=== PATIENT | female | born 1985 | race African-American/Black ===

== ENCOUNTER 2024-01-24 11:30 | Outpatient (CLI) | payer OTHER, SELFPAY ==
[2024-01-24 12:07] LABS: Hematocrit 34.3 % (37.0-47.0); Hemoglobin 10.6 g/dL (12.0-15.0); Mean Corpuscular HGB Conc 30.9 g/dl (32-36); Mean Corpuscular Hemoglobin 22.8 pg (26-34); Mean Corpuscular Volume 73.8 fl (80-100); Mean Platelet Volume 10.1 fl (7.4-10.4); Platelet Count Result 344 k/mm3 (150-375); Red Blood Count 4.65 M/mm3 (4.2-5.4); Red Cell Distribution Width 17.1 % (11.5-14.5)
[2024-01-24 12:19] LABS: Alanine Aminotransferase 14 U/L (6-35); Albumin Level 4.2 g/dL (3.5-5.1); Alkaline Phosphatase 49 U/L (38-126); Anion Gap 10 mmol/L (4-12); Aspartate Amino Transferase 17 U/L (14-36); Bilirubin,Total 0.4 mg/dL (0.2-1.3); Blood Urea Nitrogen 12 mg/dL (7-17); Calcium 9.3 mg/dL (8.4-10.2); Carbon Dioxide 25 mmol/L (22-30); Chloride 103 mmol/L (98-107); Estimated Glomerular Filt Rate > 60; Glucose 87 mg/dL (65-110); Sodium 138 mmol/L (137-145)
[2024-01-24 12:51] LABS: Hemoglobin A1C 6.1 % (<5.7)
[2024-01-24 13:00] LABS: Free T4 Free Thyroxine 1.16 ng/mL (0.78-2.19)
[2024-01-26 05:58] LABS: DHEA-Sulfate 124 mcg/dL (19-237); FSH 1.4 mIU/mL; LH 1.4 mIU/mL; Progesterone 4.7 ng/mL; Prolactin 10.3 ng/mL
[2024-01-31 12:23] LABS: Testosterone Free 5.5 pg/mL (0.1-6.4); Testosterone Total 35 ng/dL (2-45)
== END 2024-01-24 11:31 | disposition home or self-care (01) ==
LOC: ANHLAB 11:39
PROVIDERS: Visit Provider Obstetrics & Gynecology
DX: N92.0 Excessive and frequent menstruation with regular cycle (principal); L68.0 Hirsutism
CPT/HCPCS: 36415; 80053; 82627; 82670; 83001; 83002; 83036; 84144; 84146; 84402; 84403; 84439; 84443; 85027

== ENCOUNTER 2024-02-07 09:27 | Outpatient (CLI) | payer OTHER, SELFPAY ==
--- NOTE | ~2024-02-07 | US_ITS ---
US pelvic complete w TV Ordering provider: Josias Unger MD History: . excessive frequent menstruation w regular cycle . Comparison: None. Technique: Transabdominal and endovaginal ultrasound of the pelvis (Doppler ultrasound interrogation techniques used as needed for this exam.) FINDINGS: CERVIX: Normal. UTERUS: Measures 11x 6.4x 5.5 cm in length which is within normal limits and is anteverted. Multiple fibroids are seen with the largest measuring 5.2 x 4.7 x 3.6 cm. Another one is seen measuring 2.5 x 3 x 4.3 cm. ENDOMETRIUM: Normal in thickness measuring 3 mm. (Note: the premenopausal endometrium may measure up to 16 mm when in the secretory phase.) No endometrial masses, cysts or fluid. CUL DE SAC: Minimal posterior free fluid. RIGHT OVARY: Normal in size measuring 4.4x 1.9x 2.2 cm. Normal echotexture. Doppler vascular flow pre sent. LEFT OVARY: Not seen. ADNEXA: Normal. No mass. IMPRESSION: Multiple fibroids. Minimal fluid in the posterior cul-de-sac. Reviewed, dictated and finalized at location A. JSF DEVELOPER
== END 2024-02-07 09:28 | disposition home or self-care (01) ==
PROVIDERS: PCP Obstetrics & Gynecology; Visit Provider Obstetrics & Gynecology
DX: D25.9 Leiomyoma of uterus, unspecified (principal)
CPT/HCPCS: 76830; 76856

== ENCOUNTER 2024-10-03 11:50 | Outpatient (CLI) | payer OTHER, SELFPAY ==
--- OUTSIDE RECORDS SUMMARY | 2024-10-03 11:55 | XMS_ITS | Clinical Summary ---
Author Organization [facility] al Address [address] [place] [address] Care Team Providers Care Rail Transit Operator Name Role Phone Brittany Ellison NP Primary Care Provider + Allergies Active Allergy Reactions Criticality Noted Date Comments Metronidazole Headache Low 01/19/2018 Nickel Rash Medium 04/03/2024 Penicillin Unknown 02/14/2024 Tree Nut Medications cetirizine 10 mg capsule Take 10 mg by mouth daily 30 capsule 07/18/19 20 Active acetaminophen 325 mg capsule Take 1 capsule (325 mg total) by mouth every 4 (four) hours as needed Active EPINEPHrine (EpiPen 2-Ramirez) 0.3 mg/0.3 mL auto-injection syringeIndications:Carmen phylaxis Inject 0.3 mL (0.3 mg total) into the muscle as instructed as needed for anaphylaxis 2 each 07/01/19 23 Active azelastine (ASTELIN) 137 mcg (0.1 %) nasal sprayIndications:Aller gic rhinoconjunctivitis Administer 1 spray into each nostril 2 (two) times a day Use in each nostril as directed 30 mL 07/01/19 23 Active fluticasone propionate (FLONASE) 50 mcg/actuation nasal sprayIndications:Aller gic rhinoconjunctivitis Administer 2 sprays into each nostril daily 18.2 mL 07/01/19 23 Active ferrous sulfate 325 mg (65 mg of elemental iron) tabletIndications:Iron Deficiency Anemia Take 1 tablet (65 mg of elemental iron total) by mouth 3 (three) times a day with meals Active Active Problems Problem Noted Date Diagnosed Date Abnormal uterine bleeding (AUB) 04/15/2024 Allergic rhinoconjunctivitis 07/20/2018 Tree nut allergy 07/20/2018 Paresthesias 11/28/2017 Migraine with aura and without status migrainosu s 11/13/2017 History of colonoscopy 06/20/2016 Cephalalgia 06/20/2016 Snoring 06/20/2016 Fatigue 06/20/2016 Neck swelling 06/20/2016 Surgical History Surgery Date Site/Laterality Comments [place] CHOLECYSTECTOMY Cholecystectomy - (Added by TW Conv) ANTERIOR CRUCIATE LIGAMENT REPAIR Medical History Medical History Date Comments Personal history of healed t raumatic fracture History of fracture of foot - (Added by TW Conv) Personal history of other co mplications of , childbirth and the puerperium H/O: 1 miscarriage - (Added by TW Conv) Family History Medical History Relation Name Comments Heart disease Brother Family history of cardiac disorder - (Added by TW Conv) Diabetes Father Family history of diabetes mellitus - (Added by TW Conv) Hypertension Mother Family history of hypertension - (Added by TW Conv) Lupus Mother Cancer Other Family history of malignant neoplasm - (Added by TW Conv) Relation Name Status Comments Brother Father Mother Other Social History Tobacco Use Types Packs/Day Years Used Date Smoking Tobacco: Never Smokeless Tobacco: Never Tobacco Cessation:Counseling Given: No AUDIT-C Answer Date Recorded Q1: How often do you have a drink containing alc ohol? 2-3 times a week 04/15/2024 Q2: How many drinks containi ng alcohol do you have on a typical day when you are drinking? 1 or 2 04/15/2024 Q3: How often do you have si x or more drinks on one occasion? Never 04/15/2024 Personal Safety Answer Date Recorded Have you ever been in or are you currently in a harmful physical or emotional relationship or is someone making you feel afraid or unsafe? Denies 04/15/2024 Comments Unknown Sex and Gender Information Value Date Recorded Sex Assigned at Not on file Legal Sex Female 7:27 PM TUBULAR PRODUCTS FABRICATOR Gender Identity Not on file Sexual Orientation Not on file Obstetrics History Last Filed Vital Signs Vital Sign Reading Time Taken Comments Blood Pressure 150/87 04/15/2024 9:00 AM TUBULAR PRODUCTS FABRICATOR Pulse 62 04/15/2024 9:00 AM TUBULAR PRODUCTS FABRICATOR Temperature 37.1 C (98.8 F) 04/15/2024 8:30 AM TUBULAR PRODUCTS FABRICATOR Respiratory Rate 16 04/15/2024 9:00 AM TUBULAR PRODUCTS FABRICATOR Oxygen Saturation 98% 04/15/2024 9:00 AM TUBULAR PRODUCTS FABRICATOR Inhaled Oxygen Concentration - - Weight 132 kg (291 lb) 04/15/2024 5:55 AM TUBULAR PRODUCTS FABRICATOR Height 170.2 cm (5' 7) 04/15/2024 5:55 AM TUBULAR PRODUCTS FABRICATOR Body Mass Index 45.58 04/15/2024 5:55 AM TUBULAR PRODUCTS FABRICATOR Plan of Treatment Health Maintenance Due Date Last Done Comments Cervical Cancer Screening 1985 Depression Screening 1985 Hepatitis C Screening 1985 Varicella Vaccines (1 of 2 - 13+ 2-dose series) 1998 Hepatitis B Screening 2003 Regular Well Visit/Exam 18-64 2003 DTaP/Tdap/Td Vaccine (2 - Td or Tdap) 03/27/2020 03/27/2010 Covid-19 Vaccine (3 - 2023-2 5 season) 2023 03/01/2021, 12/12/2020 Influenza Vaccine (#1) 2024 HPV Vaccines Aged Out No longer eligi ble based on patient's age to complete this topic Pneumococcal vaccine <65 Aged Out No longer eligible based on patient's age to complete this topic Insurance * Guarantor: Chen Gonzalez Account Type Relation to Patient Date of Phone Billing Address Personal/Family Self 1985 [id number] (Work) [address] [place] [address] [place] [address] [facility] CHOICE PLUS [phone] [id number] (Work) [address] [facility] [address] [place] [place] [address] [facility] [address] [facility] [address] [id number] (Work) [address] [facility] [place] [address] Care Teams Rail Transit Operator Relationship Specialty Start Date End Date Brittany Ellison NP [address] [place] [address] PCP - General Nurse Practitioner 04/10/24
--- OUTSIDE RECORDS SUMMARY | 2024-10-03 11:55 | XMS_ITS | Clinical Summary ---
Author Organization [facility] Address [address] [place] [address] Phone Care Team Providers Care Laminating Machine Operator Name Role Phone Brittany Ellison Primary Care Provider Allergies Active Allergy Reactions Criticality Noted Date Comments Metronidazole Headache Low 01/19/2018 Penicillin Rash Low 03/03/2016 Tree Nut Other (See Comments) 02/06/2020 Unclassified Drug Rash Medium 07/03/2017 Medications CETIRIZINE HCL (ZYRTEC ORAL) Take by mouth. Active Norethindrn A-E estradiol-Iron (MICROGESTIN FE 1.5/30, 28,) 1.5-30 mg-mcg tabletIndication s:Contraception Take 1 Tab by mouth daily. 3 Package 4 08/15/2013 Active Active Problems Problem Noted Date Diagnosed Date BMI 40.0-44.9, adult 02/06/2020 Morbid (severe) obesity due to excess calories 1 04/07/2019 Rash 02/06/2020 Allergic rhinoconjunctivitis 07/20/2018 Tree nut allergy 07/20/2018 Paresthesias 11/28/2017 Migraine with aura and without status migrainosu s 11/13/2017 Cephalalgia 06/20/2016 Fatigue 06/20/2016 History of colonoscopy 06/20/2016 Neck swelling 06/20/2016 Family History Medical History Relation Name Comments Depression Brother Diabetes Father Hypertension Father Other Father high cholestero l Cancer Maternal Grandmother lung Hypertension Mother Other Mother ovarian cyst Stroke Mother Diabetes Paternal Grandmother Other Paternal Grandmother high ch olesterol;osteoporosis Relation Name Status Comments Brother Father Maternal Grandmother Mother Paternal Grandmother Social History Tobacco Use Types Packs/Day Years Used Date Smoking Tobacco: Never Smokeless Tobacco: Never Alcohol Use Standard Drinks/Week Comments Yes 0 (1 standard drink = 0.6 oz pur e alcohol) Comments No Sex and Gender Information Value Date Recorded Sex Assigned at Not on file Legal Sex Female 4:07 PM CDT Gender Identity Not on file Sexual Orientation Not on file Occupation Industry Job Start Date Job End Date Not on file Not on file Not on file Not on file Last Filed Vital Signs Vital Sign Reading Time Taken Comments Blood Pressure 126/87 10/05/2020 5:12 PM CDT Pulse 92 10/05/2020 5:12 PM CDT Temperature 36.7 C (98 F) 10/05/2020 5:12 PM CDT Respiratory Rate 18 2020 7:35 PM HUMANITIES TEACHER Oxygen Saturation 100% 10/05/2020 5:12 PM CDT Inhaled Oxygen Concentration - - Weight 136.1 kg (300 lb) 10/05/2020 5:12 PM CDT Height 170.2 cm (5' 7) 10/05/2020 5:12 PM CDT Body Mass Index 46.99 10/05/2020 5:12 PM CDT Plan of Treatment Health Maintenance Due Date Last Done Comments Pre-Diabetes and Diabetes Screening 1985 DTAP/TDAP/TD VACCINES (1 - Tdap) 2004 HEPATITIS B VACCINES (1 of 3 - 19+ 3-dose series) 2004 PAP SMEAR 08/15/2016 08/15/2013 CERVICAL CANCER SCREENING 08/15/2018 HPV/Cotest (21-29) 08/15/2018 08/15/2013 HPV/Cotest (30-65) 08/15/2018 08/15/2013 INFLUENZA VACCINE (#1) 2024 HPV VACCINES Aged Out No longer eligi ble based on patient's age to complete this topic Procedures Procedure Name Priority Date/Time Associated Diagnosis Comments CERV/VAG CYTOPATH, THIN PREP IMAGR RFLX HPV Routine 08/15/2013 7:11 PM CDT Cervical cancer screening from Last 3 Months or Most Recently Relevant to Health Maintenance Results * CERV/VAG CYTOPATH, THIN PREP IMAGR RFLX HPV (08/15/2013 7:11 PM CDT) PAP INTERP Negative for intraepithelial lesion or malignancy. [facility] Comment: Performed by [facility], [address] [place] [address] Hvac Sheet Metal Installer Pap Comment This Pap test has been evaluated with computer assisted technology. [facility] ip.access [facility] ADEQUACY: Satisfactory for evaluation. Endocervical/trans formation zone component present. Age and/or menstrual status not provided [facility] CLINICAL INFORMATION Information not provided [facility] SOURCE Endocervix [facility] SERVICES [facility] PREV PAP: INFORMATION NOT PROVIDED [facility] CYTOTECHNOLOGI ST: ARSEN, CT(ASCP) [facility] LAST MENSTRUAL PERIOD INFORMATION NOT PROVIDED [facility] PREV BX: INFORMATION NOT PROVIDED [facility] Endocervical 08/15/2013 7:11 PM CDT 08/15/2013 8:36 PM CDT Comment:ENDOCERVICAL Narrative [facility] - 08/23/2013 9:55 AM CDT ecc Rebeca Carr MD PATHOLOGY/CYTOLOGY ORDERABLES Fi nal Result [facility] ip.access [facility] CLIA# [id number] [address] [place] [address] from Last 3 Months or Most Recently Relevant to Health Maintenance Insurance [facility] BLUE ACCESS CHOICE [facility] Care Teams Laminating Machine Operator Relationship Specialty Start Date End Date Brittany Ellison FNP PCP - General Nurse Practitioner Family 02/06/20
--- OUTSIDE RECORDS SUMMARY | 2024-10-03 11:55 | XMS_ITS | Clinical Summary ---
Author Organization [facility] Address [address] [place] [address] Care Team Providers Care Drag Out Worker Name Role Phone Brittany Ellison GARCIA-EDUCATION DEPARTMENT CHAIR Primary Care Provider Source Comments [facility],non-owned Affiliates and Associated Physician Practices is amultiple site organization consisting of ambulatory clinics and hospital sitesin [place], [place], [place] and [place]. This disclosure is being madepursuant to the Care Everywhere program and may not contain all information available regarding this patient. Last updated 17.[facility] Allergies Active Allergy Reactions Criticality Noted Date Comments Metronidazole Headache Low 01/19/2018 Penicillin G Rash Medium 03/03/2016 Kdc:Red Dye+Penicillin V+Saccharin+Aspartame Rash Medium 07/03/2017 Tree Nuts Unknown Medications * Be aware that medications may not be up to date on this document. Alwaysverify current medications with the patient. fluticasone propionate (FLONASE) 50 MCG/ACT nasal spray [place] 2 (two) sprays into each nostril 1 spray each nostril daily 0 6 Active cetirizine (ZYRTEC ALLERGY) 10 MG gel capsule Take 1 (one) capsule by mouth once daily Active EPINEPHrine (EPIPEN) 0.3 MG/0.3ML auto-injector pen Inject 0.3 mg into muscle once Active azelastine (ASTELIN) 0.1 % nasal spray [place] 1 (one) spray into the nose 2 times daily 0 Active acetaminophen (TYLENOL) 250 MG TABS Take by mouth every 4 hours as needed Active omeprazole (PRILOSEC) 40 MG capsule 1 Active metFORMIN (Glucophage) 500 MG tablet Take 2 (two) tablets by mouth 2 times daily with morning and evening meal 60 tablet 3 Active Additional Information Patient not taking.Reported on 07/04/2022 PreviDent 5000 Booster Plus 1.1 % USE PEA SIZED AMOUNT AFTER BREAKFAST AND BEFORE BEDTIME 3 Active ofloxacin (Ocuflox) 0.3 % ophthalmic solution INSTILL 1 DROP IN BOTH EYES FOUR TIMES DAILY FOR 7 DAYS 3 Active estradiol (Estrace) 0.1 MG/GM vaginal creamIndication s:Vulvovaginal Atrophy Insert 0.5 g into the vagina at bedtime Reasons: Vulvovaginal Atrophy 42.5 g 3 Active Active Problems Problem Noted Date Diagnosed Date Dyspareunia, female 07/15/2022 Cervical high risk HPV (human papillomavirus) te st positive 07/15/2022 BMI 40.0-44.9, adult 02/06/2020 Morbid (severe) obesity due to excess calories 1 04/07/2019 Resolved Problems Problem Noted Date Diagnosed Date Resolved Date Rash 02/06/2020 09/23/2021 Family History Medical History Relation Name Comments Bipolar Disorder Brother Depression Brother Diabetes Father Hypercholesterolemia Father Hypertension Father Cancer Maternal Grandmother Lung Hypertension Mother Other Mother Ovarian cyst Stroke Mother Diabetes Paternal Grandmother Hypercholesterolemia Paternal Grandmother Osteoporosis Paternal Grandmother Relation Name Status Comments Brother Alive Father Alive Maternal Grandmother Mother Alive Paternal Grandmother Sister Alive Social History Tobacco Use Types Packs/Day Years Used Date Smoking Tobacco: Never Smokeless Tobacco: Never Tobacco Cessation:Counseling Given: Not Answered Alcohol Use Standard Drinks/Week Comments Yes 4.2 (1 standard drink = 0.6 oz p ure alcohol) social AUDIT-C Answer Date Recorded Q1: How often do you have a drink containing alc ohol? 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 Not on file Not on file Last Filed Vital Signs Vital Sign Reading Time Taken Comments Blood Pressure 128/86 07/15/2022 1:30 PM CDT Pulse 104 01/01/2022 10:44 AM CDT Temperature 36.2 C (97.1 F) 01/01/2022 10:44 AM CDT Respiratory Rate 18 07/15/2022 1:30 PM CDT Oxygen Saturation 100% 01/01/2022 10:44 AM CDT Inhaled Oxygen Concentration - - Weight 132.9 kg (293 lb) 12/08/2022 5:00 PM CDT Height 170.2 cm (5' 7) 12/08/2022 5:00 PM CDT Body Mass Index 45.89 12/08/2022 5:00 PM CDT Plan of Treatment Health Maintenance Due Date Last Done Comments HIV SCREENING 2000 HEPATITIS C SCREENING 04/13/2003 DTAP/TDAP/TD VACCINES (1 - Tdap) 2004 HEPATITIS B VACCINE (1 of 3 - 19+ 3-dose series) 2004 HPV VACCINE (1 - 3-dose SCDM series) 2012 COVID-19 VACCINE (3 - season) 2023 03/01/2021, 12/12/2020 DEPRESSION SCREENING 03/27/2024 08/26/2021 INFLUENZA VACCINE (#1) 2024 PAP with HPV 05/24/2027 05/24/2022, 04/28, 12/13/2018, Additional history exists ZOSTER VACCINE (1 of 2) 2035 HIB VACCINE Aged Out No longer eligi ble based on patient's age to complete this topic MENINGOCOCCAL (Group B) VACCINE SHARED DECISION-MAKING Aged Out No longer eligible based on patient's age to complete this topic MENINGOCOCCAL GROUPS A/C/Y/W VACCINE Aged Out No longer eligible based on patient's age to complete this topic PNEUMOCOCCAL VACCINE Aged Out No long er eligible based on patient's age to complete this topic Goals Goal Patient Goal Type Associated Problems Recent Progress Patient-Stated? Author Medication Management General No Lanre White, CHAD Note: Expected end date: ongoing Interventions: Take all medications as prescribed Let your doctor know right away about any changes in your medications Make sure to request a refill of your medication at least one week prior to your last dose Procedures Procedure Name Priority Date/Time Associated Diagnosis Comments PAP IG LB+CT+NG+TV+HPV APTIMA RFLX 16,18/45 Routine 05/24/2022 4:48 PM POLICE DETECTIVE Well woman exam Screening for HPV (human papillomavirus) from Last 3 Months or Most Recently Relevant to Health Maintenance Results * (ABNORMAL) PAP IG LB+CT+NG+TV+HPV APTIMA RFLX 16,18/45 (05/24/2022 4:48 PM POLICE DETECTIVE) Diagnosis [facility] ACCOUNT BILL Comment:NEGATIVE FOR INTRAEP ITHELIAL LESION OR MALIGNANCY. Specimen Adequacy [facility] ACCOUNT BILL Comment:Satisfactory for fransico luation. No endocervical component is identified. Clinician Provided ICD10 [facility] ACCOUNT BILL Comment: Z01.419 Z11.51 D21.9 R10.31 G89.29 Z31.69 Performed by [facility] ACCOUNT BILL Comment:Lonny Aaron, [facility] otechnologist (ASCP) Comment . [facility] ACCOUNT BILL Note [facility] ACCOUNT BILL Comment: The Pap smear is a screening test designed to aid in the detection of premalignant and malignant conditions of the uterine cervix. It is not a diagnostic procedure and should not be used as the sole means of detecting cervical cancer. Both false-positive and false-negative reports do occur. . IGLBP CPT Code Automation [facility] ACCOUNT BILL Comment: This liquid based ThinPrep(R) pap test was screened with the use of an image guided system. Human papillomavirus Aptima Positive(A) Negative [facility] ACCOUNT BILL Comment: This nucleic acid amplification test detects fourteen high-risk HPV types (16,18,31,33,35,39,45,51,52,56,58,59,66,68) without differentiation. HPV Genotype Reflexed [facility] ACCOUNT BILL Comment:Criteria met, see HP V Genotype results. Chlamydia trachomatis RON Negative Negative [facility] ACCOUNT BILL GC RON Negative Negative [facility] ACCOUNT BILL Trichomonas vaginalis by RON Negative Negative [facility] ACCOUNT BILL PART OF UTERINE CERVIX / Unknown 05/24/2022 4:48 PM POLICE DETECTIVE 05/25/2022 Narrative [facility] ACCOUNT BILL - 05/31/2022 11:07 PM POLICE DETECTIVE No. of containers..01 ThinPrep Vial Resulting Agency Comment Lab Testing performed at: [facility] [id number] Lisa Hui DO LAB - PATHOLOGY/CYTOLOGY ORDERAB LES Final Result [facility] ACCOUNT BILL [address] [place] [address] from Last 3 Months or Most Recently Relevant to Health Maintenance Insurance [facility] Care Teams Drag Out Worker Relationship Specialty Start Date End Date Brittany Ellison APRN-ZIGGY [address] [place] [id number] PCP - General 11/09/20
--- OUTSIDE RECORDS SUMMARY | 2024-10-03 11:55 | XMS_ITS | Referral Summary ---
Author Organization [facility] Address [address] [place] [address] Care Team Providers Care Rug Weaver Name Role Phone Brittany Ellison NP Primary [...] Snoring 06/20/2016 Fatigue 06/20/2016 Neck swelling 06/20/2016 Social History Tobacco Use Types Packs/Day Years [...] on file Legal Sex Female 7:27 PM PACKAGE SORTER Gender Identity Not on file Sexual Orientation Not on file Last Filed Vital Signs Vital Sign Reading Time Taken Comments Blood Pressure 150/87 04/15/2024 9:00 AM PACKAGE SORTER Pulse 62 04/15/2024 9:00 AM PACKAGE SORTER Temperature 37.1 C (98.8 F) 04/15/2024 8:30 AM PACKAGE SORTER Respiratory Rate 16 04/15/2024 9:00 AM PACKAGE SORTER Oxygen Saturation 98% 04/15/2024 9:00 AM PACKAGE SORTER Inhaled Oxygen Concentration - - Weight 132 kg (291 lb) 04/15/2024 5:55 AM PACKAGE SORTER Height 170.2 cm (5' 7) 04/15/2024 5:55 AM PACKAGE SORTER Body Mass Index 45.58 04/15/2024 5:55 AM PACKAGE SORTER Plan of Treatment Not on file Insurance * Guarantor: Chen Gonzalez Account Type Relation to Patient Date of Phone Billing Address Personal/Family Self 1985 [id number] (Work) [address] [place] [address] [address] [facility] [place] [address] [facility] CHOICE PLUS [phone] [id number] (Work) [address] [place] [address] [address] [facility] [place] [address] [facility] [address] [facility] [id number] (Work) [id number] [facility] [place] [address] Care Teams Rug Weaver Relationship Specialty Start Date End Date Brittany Ellison NP [address] [place] [address] PCP - General Nurse Practitioner 04/10/24
[2024-10-03 15:33] LABS: Beta HCG Quantitative 175.97 mIU/ML
== END 2024-10-03 11:51 | disposition home or self-care (01) ==
LOC: ANHLAB 11:54
PROVIDERS: PCP Obstetrics & Gynecology; Visit Provider Obstetrics & Gynecology
DX: N91.1 Secondary amenorrhea (principal)
CPT/HCPCS: 36415; 84702

== ENCOUNTER 2024-10-07 16:58 | Outpatient (CLI) | payer OTHER, SELFPAY ==
--- OUTSIDE RECORDS SUMMARY | 2024-10-07 17:03 | XMS_ITS | Clinical Summary ---
Author Organization [facility] Address [address] [place] [address] Phone Care Team Providers Care Artist Color Separation Name Role Phone Brittany Ellison Primary Care [...] CDT Respiratory Rate 18 2020 7:35 PM EMERGENCY VEHICLE DRIVER Oxygen Saturation 100% 10/05/2020 5:12 PM CDT [...] INTERP Negative for intraepithelial lesion or malignancy. [facility] Comment: Performed by [facility], [address] [place] [address] Residential Treatment Staff Pap Comment This Pap test has been evaluated with computer assisted technology. [facility] yuback [facility] ADEQUACY: Satisfactory for evaluation. Endocervical/trans formation zone component present. Age and/or menstrual status not provided [facility] CLINICAL INFORMATION Information not provided [facility] SOURCE Endocervix [facility] SERVICES [facility] PREV PAP: INFORMATION NOT PROVIDED [facility] CYTOTECHNOLOGI ST: ARSEN, CT(ASCP) [facility] SERVICES [facility] LAST MENSTRUAL PERIOD INFORMATION NOT PROVIDED [facility] PREV BX: INFORMATION NOT PROVIDED [facility] Endocervical 08/15/2013 7:11 PM CDT 08/15/2013 8:36 PM CDT Comment:ENDOCERVICAL Narrative [facility] - 08/23/2013 9:55 AM CDT ecc Rebeca Carr MD PATHOLOGY/CYTOLOGY ORDERABLES Fi nal Result [facility] yuback [facility] CLIA# [id number] [address] [place] [address] from Last 3 Months or Most Recently Relevant to Health Maintenance Insurance [facility] BLUE ACCESS CHOICE [facility] Care Teams Artist Color Separation Relationship Specialty Start Date End Date Brittany Ellison FNP PCP - General Nurse Practitioner Family 02/06/20
--- OUTSIDE RECORDS SUMMARY | 2024-10-07 17:03 | XMS_ITS | Clinical Summary ---
Author Organization [facility] Address [address] [place] [address] Care Team Providers Care Spool Worker Name Role Phone Brittany Ellison NP Primary [...] 06/20/2016 Surgical History Surgery Date Site/Laterality Comments [place] CHOLECYSTECTOMY Cholecystectomy - (Added by TW Conv) [...] on file Legal Sex Female 7:27 PM CORE RESCUER Gender Identity Not on file Sexual Orientation Not on file Obstetrics History Last Filed Vital Signs Vital Sign Reading Time Taken Comments Blood Pressure 150/87 04/15/2024 9:00 AM CORE RESCUER Pulse 62 04/15/2024 9:00 AM CORE RESCUER Temperature 37.1 C (98.8 F) 04/15/2024 8:30 AM CORE RESCUER Respiratory Rate 16 04/15/2024 9:00 AM CORE RESCUER Oxygen Saturation 98% 04/15/2024 9:00 AM CORE RESCUER Inhaled Oxygen Concentration - - Weight 132 kg (291 lb) 04/15/2024 5:55 AM CORE RESCUER Height 170.2 cm (5' 7) 04/15/2024 5:55 AM CORE RESCUER Body Mass Index 45.58 04/15/2024 5:55 AM CORE RESCUER Plan of Treatment Health Maintenance Due Date [...] of Phone Billing Address Personal/Family Self 1985 [phone] (Work) [address] [place] [address] [place] [address] [facility] [phone] (Work) [address] [place] [address] [facility] [id number] [facility] [id number] (Work) [phone] [place] [address] Care Teams Spool Worker Relationship Specialty Start Date End Date Brittany Ellison NP [address] [place] [address] PCP - General Nurse Practitioner 04/10/24
--- OUTSIDE RECORDS SUMMARY | 2024-10-07 17:03 | XMS_ITS | Clinical Summary ---
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 Role Phone Unavailable Primary Care Provider Unavailabl e Social History Tobacco Use Types Packs/Day Years Used Date Smoking Tobacco: Never Assessed Comments Unknown Sex and Gender Information Value Date Recorded Sex Assigned at Not on file Legal Sex Female 4:06 PM CDT Gender Identity Not on file Sexual Orientation Not on file Plan of Treatment Health Maintenance Due Date Last Done Comments Cervical Cancer Screening Pa p Smear (Age 30 to 64) Every 3 Years 1985 Annual Physical 1988 Hepatitis C 2003 DTaP, Tdap and Td Vaccines ( 1 - Tdap) 2004 Hepatitis B Vaccines (1 of 3 - 19+ 3-dose series) 2004 Cervical Cancer Screening Pa p with HPV Testing (Age 30 to 64) Every 5 Years 2015 Cervical Cancer Screening with HPV 2015 COVID-19 Vaccine (2023-2 5 season) 2023 HPV Vaccines Aged Out No longer eligi ble based on patient's age to complete this topic Meningococcal B Vaccine Aged Out No l onger eligible based on patient's age to complete this topic Meningococcal Vaccine Aged Out No nicky skip eligible based on patient's age to complete this topic Pneumococcal Vaccine: Pediat rics (0 to 5 Years) and At-Risk Patients (6 to 49 Years) Aged Out No longer eligible b ased on patient's age to complete this topic RSV Immunizations Under 20 Months Aged Out No longer eligible based on patient's age to complete this topic
--- OUTSIDE RECORDS SUMMARY | 2024-10-07 17:03 | XMS_ITS | Clinical Summary ---
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 This disclosure is being madepursuant to the Care Everywhere program and may not contain all information available regarding this patient. Last updated 17.[facility] [employer] Allergies Active Allergy Reactions Criticality Noted Date Comments Metronidazole Headache Low 01/19/2018 Penicillin G Rash Medium 03/03/2016 Kdc:Red Dye+Penicillin V+Saccharin+Aspartame Rash Medium 07/03/2017 Tree Nuts Unknown Medications * Be aware that medications may not be up to date on this document. Alwaysverify current medications with the patient. 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 Specimen Adequacy [facility] ACCOUNT BILL Comment:Satisfactory for fransico luation. No endocervical component is identified. Clinician Provided ICD10 [facility] ACCOUNT BILL Comment: Z01.419 Z11.51 D21.9 R10.31 G89.29 Z31.69 Performed by [facility] ACCOUNT BILL Comment:Lonny Aaron, [facility] otechnologist (ASCP) Comment . [facility] ACCOUNT [...] UTERINE CERVIX / Unknown 05/24/2022 4:48 PM TATTOO ARTIST 05/25/2022 Narrative [facility] ACCOUNT BILL - 05/31/2022 11:07 PM TATTOO ARTIST No. of containers..01 ThinPrep Vial Resulting Agency Comment Lab Testing performed at: [facility] [id number] Lisa Hui DO LAB - PATHOLOGY/CYTOLOGY ORDERAB LES Final Result [facility] ACCOUNT BILL [address] [place] [address] from Last 3 Months or Most Recently Relevant to Health Maintenance Insurance [facility] Care Teams Port Traffic Manager Relationship Specialty Start Date End Date Brittany Ellison APRN-ZIGGY [address] [place] [phone] PCP - General 11/09/20
--- OUTSIDE RECORDS SUMMARY | 2024-10-07 17:03 | XMS_ITS | Referral Summary ---
Author Organization 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 Gender Identity Not on file Sexual Orientation Not on file Last Filed Vital Signs Vital Sign Reading Time Taken Comments Blood Pressure 150/87 04/15/2024 9:00 AM SENIOR LIVING SALES COUNSELOR Pulse 62 04/15/2024 9:00 AM SENIOR LIVING SALES COUNSELOR Temperature 37.1 C (98.8 F) 04/15/2024 8:30 AM SENIOR LIVING SALES COUNSELOR Respiratory Rate 16 04/15/2024 9:00 AM SENIOR LIVING SALES COUNSELOR Oxygen Saturation 98% 04/15/2024 9:00 AM SENIOR LIVING SALES COUNSELOR Inhaled Oxygen Concentration - - Weight 132 kg (291 lb) 04/15/2024 5:55 AM SENIOR LIVING SALES COUNSELOR Height 170.2 cm (5' 7) 04/15/2024 5:55 AM SENIOR LIVING SALES COUNSELOR Body Mass Index 45.58 04/15/2024 5:55 AM SENIOR LIVING SALES COUNSELOR Plan of Treatment Not on file Insurance * Guarantor: Chen Gonzalez Account Type Relation to Patient Date of Phone Billing Address Personal/Family Self 1985 [phone] (Work) [address] [place] [address] [place] [address] [facility] [phone] [id number] (Work) [address] [place] [address] [place] [address] [facility] [address] [facility] [id number] [phone] (Work) [phone] [facility] [place] [address] Care Teams [employer] Special Education Teacher Relationship Specialty Start Date End Date Brittany Ellison NP [address] [place] [address] PCP - General Nurse Practitioner 04/10/24
[2024-10-07 17:59] LABS: Beta HCG Quantitative 220.88 mIU/ML
== END 2024-10-07 16:59 | disposition home or self-care (01) ==
LOC: ANHLAB 17:01
PROVIDERS: PCP Obstetrics & Gynecology; Visit Provider Obstetrics & Gynecology
DX: N91.1 Secondary amenorrhea (principal)
CPT/HCPCS: 36415; 84702